=== PATIENT | male | born 1960 | race Caucasian/White ===

== ENCOUNTER 2020-11-02 08:09 | Day surgery (SDC) | payer BC ==
[~2020-11-02] VITALS: Ht 180.3 cm; Wt 97.6 kg
[~2020-11-02 08:09] MED LIST: DILT180 PO; HYDCHL25 PO; LOSA25 PO; SILD25T
== END 2020-11-02 10:45 | disposition home or self-care (01) ==
LOC: ORSCSDS 08:09
PROVIDERS: Orthopaedic Surgery
PROC: 01N54ZZ Release Median Nerve, Percutaneous Endoscopic Approach (ICD-10-PCS; principal; 2020-11-02 09:30)
DX: G56.02 Carpal tunnel syndrome, left upper limb (principal); I10 Essential (primary) hypertension; E78.00 Pure hypercholesterolemia, unspecified; E66.9 Obesity, unspecified; Z68.30 Body mass index [BMI] 30.0-30.9, adult; Z79.82 Long term (current) use of aspirin; Z79.899 Other long term (current) drug therapy
CPT/HCPCS: J2250

== ENCOUNTER → 2021-04-26 | Outpatient (CLI) | payer BC ==
[2021-04-26 13:19] LABS: U Amphetamine Screen Not Detected; U Barbituate Screen Not Detected; U Benzodiazapine Screen Not Detected; U Buprenorphine Screen Not Detected; U Cannabinoids Screen Not Detected; U Cocaine Screen Not Detected; U Methadone Screen Not Detected; U Methamphetamine Screen Not Detected; U Opiates Screen Not Detected; U Oxycodone Screen DETECTED; U Phencyclidine Screen Not Detected; U Propoxyphene Screen Not Detected
== END | disposition home or self-care (01) ==
LOC: LAB 10:10 → LAB SHORT 10:10
PROVIDERS: Neurological Surgery
DX: Z51.81 Encounter for therapeutic drug level monitoring (principal); Z79.891 Long term (current) use of opiate analgesic

== ENCOUNTER 2022-02-26 08:51 | Day surgery (SDC) | payer BC ==
[~2022-02-26] VITALS: Ht 180.3 cm; Wt 93.0 kg
[~2022-02-26 08:51] MED LIST changes: +FLUC150A PO
[2022-02-26] MEDS ORDERED: FLUC150A PO (09:36)
[2022-02-26] MEDS ORDERED: Atarax10 MG PO (09:36)
== END 2022-02-26 10:58 | disposition home or self-care (01) ==
LOC: ORSCSDS 08:51
PROVIDERS: Internal Medicine Gastroenterology
PROC: 0DBK8ZX Excision of Ascending Colon, Via Natural or Artificial Opening Endoscopic, Diagnostic (ICD-10-PCS; principal; 2022-02-26 10:15)
PROC: 0DBN8ZX Excision of Sigmoid Colon, Via Natural or Artificial Opening Endoscopic, Diagnostic (ICD-10-PCS; principal; 2022-02-26 10:15)
PROC: 0DBM8ZX Excision of Descending Colon, Via Natural or Artificial Opening Endoscopic, Diagnostic (ICD-10-PCS; principal; 2022-02-26 10:15)
DX: Z12.11 Encounter for screening for malignant neoplasm of colon (principal); D12.2 Benign neoplasm of ascending colon; K57.30 Diverticulosis of large intestine without perforation or abscess without bleeding; Z85.46 Personal history of malignant neoplasm of prostate; Z79.899 Other long term (current) drug therapy
CPT/HCPCS: 88305; J2250; J2704; J7120

== ENCOUNTER → 2022-02-27 | Outpatient (CLI) | payer BC | LOC: PLD 15:00 | DX: R21 Rash and other nonspecific skin eruption (principal) ==

== ENCOUNTER 2023-05-21 06:42 | Day surgery (SDC) | payer MEDICARE ==
[~2023-05-21] VITALS: Ht 180.3 cm; Wt 97.1 kg
[~2023-05-21 06:42] MED LIST changes: +Atarax10 MG PO; +IBUP600 PO
[2023-05-21] MEDS ORDERED: LOSARTAN POTASS25 M2 PO (07:22)
[2023-05-21] MEDS ORDERED: CELE100 PO (07:22)
--- NOTE | 2023-05-21 10:21 | NUR ---
05/21/23 1021 Alicja Hinton 1013 IV REMOVED CANNULA INTACT, PT JANIS WELL DENIES PAIN AND NAUSEA VERBALIZES READINESS TO GO HOME.
[2023-05-21 10:23] VITALS: BP 155/82
== END 2023-05-21 10:21 | disposition home or self-care (01) ==
LOC: ORSCSDS 06:42
PROVIDERS: Orthopaedic Surgery
PROC: 01N54ZZ Release Median Nerve, Percutaneous Endoscopic Approach (ICD-10-PCS; principal; 2023-05-21 08:00)
PROC: 01S40ZZ Reposition Ulnar Nerve, Open Approach (ICD-10-PCS; principal; 2023-05-21 08:00)
DX: G56.01 Carpal tunnel syndrome, right upper limb (principal); G56.21 Lesion of ulnar nerve, right upper limb; I10 Essential (primary) hypertension; Z85.46 Personal history of malignant neoplasm of prostate; Z85.828 Personal history of other malignant neoplasm of skin; Z87.891 Personal history of nicotine dependence; Z79.899 Other long term (current) drug therapy
CPT/HCPCS: J0690; J1100; J1885; J2405; J2704; J3010